=== PATIENT | female | born 1935 | race Caucasian/White ===

== ENCOUNTER 2022-03-23 09:50 | Outpatient (CLI) | payer MEDICARE, BC | END 2022-03-23 09:51 | disposition home or self-care (01) | LOC: CSHMAMMO 09:50 | PROVIDERS: ATTEND Internal Medicine | DX: Z12.31 Encounter for screening mammogram for malignant neoplasm of breast (principal) | CPT/HCPCS: 77063; 77067 ==

== ENCOUNTER 2023-03-26 09:29 | Outpatient (CLI) | payer MEDICARE, BC | END 2023-03-26 09:30 | disposition home or self-care (01) | LOC: CSHMAMMO 09:29 | PROVIDERS: ATTEND Internal Medicine | DX: Z12.31 Encounter for screening mammogram for malignant neoplasm of breast (principal) | CPT/HCPCS: 77063; 77067 ==

== ENCOUNTER 2025-04-13 08:30 | Emergency (ER) | payer MEDICARE, BC ==
[2025-04-13 09:04] LABS: #Basophils 0.05 10x3/uL (0.0-0.2); #Eosinophils 0.04 10x3/uL (0.0-0.5); #Monocytes 0.44 10x3/uL (0.0-1.1); #Neutrophils 7.17 10x3/uL (1.5-8.4); %Basophils 0.6 % (0.0-2.0); %Eosinophils 0.4 % (0.0-6.0); %Lymphocytes 14.5 % (18.0-47.0); %Monocytes 4.9 % (0.0-10.0); %Neutrophils 79.3 % (40.0-75.0); Hematocrit 41.8 % (34.9-44.5); Hemoglobin 13.5 g/dL (12.0-15.5); Mean Corpuscular Hemoglobin 29.3 pg (27.0-33.0); Mean Corpuscular Volume 90.9 fL (81.6-98.3); Platelet Count 177 10x3/uL (150-450); Red Blood Cell (RBC) Count 4.60 10x6/uL (3.90-5.03); White Blood Cell (WBC) Count 9.04 10x3/uL (3.5-10.5)
[2025-04-13 09:18] LABS: ALT (SGPT) 10 U/L (Less than 34); AST (SGOT) 25 U/L (11-34); Albumin 3.8 g/dL (3.1-4.5); Alkaline Phosphatase 75 U/L (40-110); Anion Gap 13 mmol/L (10-20); BUN (Urea Nitrogen) 19 mg/dL (9.8-20.1); Bilirubin, Total 0.6 mg/dL (0.3-1.2); Calc. Creatinine Clearance 0 mL/min (70-130); Calcium 9.4 mg/dL (7.8-10.44); Carbon Dioxide 27 mmol/L (23-31); Chloride 106 mmol/L (98-107); Globulin 3.4 g/dL (2.4-3.5); Glucose 131 mg/dL (83-110); Magnesium 2.0 mg/dL (1.6-2.6); Potassium 4.0 mmol/L (3.5-5.1); Sodium 142 mmol/L (136-145)
[2025-04-13 09:51] LABS: Glucose, Urine (Dipstick) Normal (Negative); Leukocyte 500 (Negative); Protein, Urine (Dipstick) 30 mg/dl (Neg-Trace); Specific Gravity, Urine 1.010 (1.005-1.030)
[2025-04-13 10:02] LABS: Bacteria/HPF 4+ HPF (None Seen); CAUTI Indications for Culture Alt mental st,lethar; WBC/HPF 21-50 HPF (0-3)
[2025-04-13 10:03] LABS: Urine Culture Reflex Yes Yes
[2025-04-13] MEDS ORDERED: Fosfomycin 3 GM/Packet PO SCH (10:30)
== END 2025-04-13 11:13 | disposition home or self-care (01) ==
LOC: CSHERS 08:30
DX: N39.0 Urinary tract infection, site not specified (principal); R29.700 NIHSS score 0; I10 Essential (primary) hypertension
CPT/HCPCS: 70450; 80053; 81001; 83735; 85025; 87077; 87086; 87186; 93005; 96360